=== PATIENT | male | born 1980 | race Caucasian/White ===

== ENCOUNTER 2020-07-23 14:12 | Emergency (ER) | payer OTHER ==
[~2020-07-23 14:12] MED LIST: AMOXICILLIN500 MG PO; IBUPROFEN800 MG PO
[2020-07-24] MEDS ORDERED: LODINE CAP 300300 MG PO (01:12)
[2020-07-24] MEDS ORDERED: NORFLEX 100 MG100 MG PO (01:12)
== END 2020-07-23 16:40 | disposition left against medical advice (07) ==
LOC: ER1 14:12
DX: Z53.21 Procedure and treatment not carried out due to patient leaving prior to being seen by health care provider (principal)

== ENCOUNTER 2020-07-23 20:16 | Emergency (ER) | payer OTHER ==
[2020-07-24] MEDS ORDERED: LODINE CAP 300300 MG PO (01:12)
[2020-07-24] MEDS ORDERED: NORFLEX 100 MG100 MG PO (01:12)
== END 2020-07-24 01:25 | disposition home or self-care (01) ==
LOC: ER1 20:16
DX: S70.12XA Contusion of left thigh, initial encounter (principal); S70.02XA Contusion of left hip, initial encounter; V49.40XA Driver injured in collision with unspecified motor vehicles in traffic accident, initial encounter; Y92.410 Unspecified street and highway as the place of occurrence of the external cause
CPT/HCPCS: 73502; 73552; 99283